=== PATIENT | female | born 1975 | race Asian ===

== ENCOUNTER 2021-05-19 18:25 | Emergency (ER) | payer MEDICAID ==
--- NOTE | 2021-05-19 18:31 | NUR ---
Placed in room 01 . Placed on residential monitor, blood pressure machine and pulse oximeter. To gown for exam. Side rails up. .
[2021-05-19 18:32] VITALS: BP_SYST 130
--- NOTE | 2021-05-19 18:42 | NUR ---
SITTING UP EATING MEAL. PT CALM, ALERT, RESP UNLABORED, SKIN WARM AND DRY. NO DYSPNEA. DENIES CP/SOB. COMMUNICATES IN FULL COPLETE SENTECES
--- NOTE | 2021-05-19 18:54 | NUR ---
DR DAVENPORT AT BEDSIDE TALKING WITH PATIENT
--- NOTE | 2021-05-19 19:22 | NUR ---
GS=[id number], CALM, ALERT TOLERATING PO WELL
--- NOTE | 2021-05-19 19:25 | NUR ---
PATIENT OUT OF BED TO PROVIDE URINE SAMPLE. PATIENT AMBULATING WITH STEADY GAIT AND NO ASSISTANCE
[2021-05-19 19:31] LABS: BASOPHILS # (AUTO) 0.1 K/uL (0.0-0.2); BASOPHILS % (AUTO) 0.7 % (0.0-2.0); EOSINOPHILS # (AUTO) 0.2 K/uL (0.0-0.4); EOSINOPHILS % (AUTO) 1.7 % (0.0-4.0); HEMATOCRIT 49.7 % (36-48); HEMOGLOBIN 16.2 g/dL (12.0-16.0); LYMPHOCYTES # (AUTO) 1.6 K/uL (1.0-5.5); LYMPHOCYTES % (AUTO) 14.1 % (20.5-51.5); MEAN CORPUSCULAR HEMOGLOBIN 30 pg (27-31); MEAN CORPUSCULAR HGB CONC 33 % (32-36); MEAN CORPUSCULAR VOLUME 93 fL (79.0-98.0); MONOCYTES # (AUTO) 0.9 K/uL (0.0-1.0); MONOCYTES % (AUTO) 7.5 % (1.7-9.3); NEUTROPHILS # (AUTO) 8.8 K/uL (1.8-7.7); PLATELET COUNT (AUTO) 211 K/uL (130-430); RED BLOOD CELL COUNT(AUTO) 5.33 MIL/uL (4.2-6.2); RED CELL DISTRIBUTION WIDTH 13.7 % (9.0-15.0); WHITE BLOOD COUNT (AUTO) 11.6 K/uL (4.8-10.8)
[2021-05-19 20:00] LABS: BILIRUBIN,URINE NEGATIVE (NEGATIVE); BLOOD, URINE NEGATIVE (NEGATIVE); CLARITY/URINE CLEAR (CLEAR); GLUCOSE,URINE 1+ (NEGATIVE); KETONES,URINE NEGATIVE (NEGATIVE); LEUKOCYTE ESTERASE ,URINE NEGATIVE (NEGATIVE); NITRITE, URINE NEGATIVE (NEGATIVE); PROTEIN URINE 1+ (NEGATIVE); UROBILINOGEN,URINE 0.2 (0.2-1.0)
[2021-05-19 20:01] LABS: COLOR,URINE STRAW (YELLOW)
[2021-05-19 20:01] LABS: CALCIUM 8.8 mg/dL (8.4-11.0); CREATININE 0.9 mg/dL (0.55-1.30); POTASSIUM 3.8 mmol/L (3.5-5.1)
[2021-05-19 20:12] LABS: ALBUMIN 3.5 g/dL (3.4-4.8); TOTAL BILIRUBIN 0.7 mg/dL (0.0-1.0)
[2021-05-19 20:30] VITALS: BP_SYST 155
--- NOTE | 2021-05-19 20:30 | NUR ---
Patient does not wish to proceed with medical care recommended by Dr. Terry. Patient given information related to possible complications, up to and including , which could occur as a result of leaving hospital at this time. Patient verbalizes understanding of risks involved leaving against medical advice. Patient has signed AMA form.
[2021-05-19 21:01] LABS: BACTERIA,URINE RARE /HPF (None Seen); RBC,URINE 0-3 /HPF (0-3); WBC,URINE NONE SEEN /HPF (0-3)
== END 2021-05-19 20:30 | disposition left against medical advice (07) ==
LOC: SED 18:25
DX: E11.649 Type 2 diabetes mellitus with hypoglycemia without coma (principal); Z88.0 Allergy status to penicillin
CPT/HCPCS: 36415; 80053; 81000; 82962; 84484; 84702; 85025; 93005; 99284

== ENCOUNTER 2023-07-02 22:29 | Inpatient (IN) | payer MEDICAID ==
[~2023-07-02] VITALS: Ht 162.6 cm; Wt 55.8 kg
[~2023-07-02 22:29] MED LIST: ASPI-1393 PO; CARV12.548 PO; EMPA10TA PO; FURO20TA4 PO; INSU100I24 SUBCUT; INSU100V SUBCUT; SPIR25TA6 PO
[2023-07-02 22:47] VITALS: BP_SYST 112; PULSE 94; RESP 18; TEMP 98.2; O2SAT 98
[2023-07-03 00:36] LABS: BASOPHILS # (AUTO) 0.1 K/uL (0.0-0.2); BASOPHILS % (AUTO) 0.6 % (0.0-2.0); EOSINOPHILS # (AUTO) 0.2 K/uL (0.0-0.4); EOSINOPHILS % (AUTO) 1.3 % (0.0-4.0); HEMATOCRIT 42.1 % (36-48); HEMOGLOBIN 13.5 g/dL (12.0-16.0); LYMPHOCYTES # (AUTO) 1.1 K/uL (1.0-5.5); LYMPHOCYTES % (AUTO) 8.7 % (20.5-51.5); MEAN CORPUSCULAR HEMOGLOBIN 28 pg (27-31); MEAN CORPUSCULAR HGB CONC 32 % (32-36); MEAN CORPUSCULAR VOLUME 88 fL (79.0-98.0); MONOCYTES # (AUTO) 0.8 K/uL (0.0-1.0); MONOCYTES % (AUTO) 6.8 % (1.7-9.3); NEUTROPHILS # (AUTO) 10.4 K/uL (1.8-7.7); NEUTROPHILS % (AUTO) 82.6 % (40.0-70.0); PLATELET COUNT (AUTO) 256 K/uL (130-430); RED BLOOD CELL COUNT(AUTO) 4.82 MIL/uL (4.2-6.2); RED CELL DISTRIBUTION WIDTH 13.8 % (9.0-15.0); WHITE BLOOD COUNT (AUTO) 12.6 K/uL (4.8-10.8)
[2023-07-03 00:42] LABS: ERYTHROCYTE SEDIMENTATION RATE 74 MM/HR (0-20)
[2023-07-03] MEDS ORDERED: MORPHINE 4 MG INJ. 4 MG/ML VIAL IVP ONE (00:45)
[2023-07-03] MEDS ORDERED: NACL 0.9% 1,000 ML IV ONE ×2 (00:45→05:45)
[2023-07-03] MEDS ORDERED: VANCOMYCIN HCL 1,000 MG in NS 250 ML IV ONE (00:45)
[2023-07-03] MEDS ORDERED: VANCOMYCIN HCL 1000 MG/VIAL IV ONE (00:58)
[2023-07-03 01:08] LABS: ALBUMIN 2.9 g/dL (3.4-4.8); CALCIUM 8.9 mg/dL (8.4-11.0); CREATININE 1.17 mg/dL (0.55-1.30); TOTAL BILIRUBIN 0.4 mg/dL (0.0-1.0); TOTAL PROTEIN, SERUM 7.3 g/dL (6.4-8.3)
[2023-07-03] MEDS ORDERED: INSULIN NPH/REGULAR 70-30, 100 UNITS/ML, 3 ML VIAL SUBCUT ONE (02:00)
[2023-07-03] MEDS ORDERED: INSULIN REGULAR, HUMAN 100 UNITS/ML, 3 ML VIAL SUBCUT ONE (02:00)
[2023-07-03] MEDS ORDERED: SACU1TAB7 PO (05:53)
[2023-07-03] MEDS ORDERED: ZOLPIDEM TARTRATE 5 MG TABLET PO PRN (07:15)
[2023-07-03] MEDS ORDERED: DEXTROSE 50% JECT 50 ML DISP.SYRIN IVP PRN (07:15)
[2023-07-03] MEDS ORDERED: MUPIROCIN 2% TOPICAL OINTMENT 22 GM NS PRN (07:15)
[2023-07-03] MEDS ORDERED: DOCUSATE SODIUM 100 MG CAPSULE PO PRN (07:15)
[2023-07-03] MEDS ORDERED: LORazepam 2 MG/ML VIAL IVP PRN (07:15)
[2023-07-03] MEDS ORDERED: NALOXONE HCL 0.4 MG/ML AMP (NARCAN) IVP PRN ×2 (07:15)
[2023-07-03] MEDS ORDERED: ACETAMINOPHEN 325 MG TABLET PO PRN ×3 (07:15→08:45)
[2023-07-03] MEDS ORDERED: ONDANSETRON HCL 4 MG/2 ML VIAL IVP PRN (07:15)
[2023-07-03] MEDS ORDERED: MAGNESIUM SULFATE 50 ML IV PRN (07:15)
[2023-07-03 07:30] LABS: INR 1.1 (0.8-1.2); PROTHROMBIN TIME 11.8 SECS (9.5-12.5)
[2023-07-03] MEDS: D5NS 1,000 ML IV SCH ×2 (07:30→16:49)
[2023-07-03 07:36] LABS: HEMOGLOBIN A1C 9.64 % (<5.7)
[2023-07-03] MEDS ORDERED: DEXTROSE 50% JECT 50 ML DISP.SYRIN ONE (08:05)
[2023-07-03] MEDS ORDERED: DEXTROSE 50% JECT 50 ML DISP.SYRIN IVP ONE (08:15)
[2023-07-03 09:45] VITALS: BP_SYST 121; PULSE 77; RESP 18; TEMP 97.5; O2SAT 100
[2023-07-03] MEDS: MORPHINE 2 MG/ML INJ. SYRINGE IVP PRN ×3 (10:19→20:58)
[2023-07-03 11:41] VITALS: O2SAT 100
[2023-07-03] MEDS ORDERED: fentaNYL CITRATE/PF 100 MCG/2 ML AMP ONE (11:53)
[2023-07-03] MEDS ORDERED: MIDAZOLAM HCL 2 MG/2 ML VIAL (VERSED) ONE (11:54)
[2023-07-03] MEDS ORDERED: KETAMINE HCL IN 0.9 % NACL 50 MG/5 ML SYRINGE ONE (11:54)
[2023-07-03] MEDS ORDERED: DOXYCYCLINE HYCLATE 100 MG VIAL IV ONE (12:21)
[2023-07-03] MEDS ORDERED: LIDOCAINE 2%, 20 ML MDV ONE (12:21)
[2023-07-03] MEDS ORDERED: BUPIVACAINE /PF 0.25% 30 ML VIAL INJ ONE (12:21)
[2023-07-03] MEDS ORDERED: MORPHINE 2 MG/ML INJ. SYRINGE ONE (13:45)
[2023-07-03] MEDS ORDERED: MORPHINE 2 MG/ML INJ. SYRINGE IVP ONE (13:45)
[2023-07-03 14:35] VITALS: BP_SYST 121; PULSE 79; RESP 18; TEMP 98.6; O2SAT 99
[2023-07-03] MEDS: INSULIN LISPRO SLIDING SCALE 100 UNITS/ML, 3 ML VIAL (humaLOG) SUBCUT PRN ×3 (14:56→21:15)
[2023-07-03 16:20] VITALS: BP_SYST 118; PULSE 85; RESP 18; TEMP 97; O2SAT 100
[2023-07-03 20:00] VITALS: BP_SYST 114; RESP 20; TEMP 98; O2SAT 97
[2023-07-03] MEDS: CEFTAROLINE FOSAMIL ACETATE 600 MG in NS 250 ML IV SCH (20:54)
[2023-07-03] MEDS ORDERED: VANCOMYCIN HCL 1,000 MG in NS 250 ML IV SCH (21:00)
[2023-07-03 21:40] LABS: BARBITURATE, URINE NEGATIVE (NEG <=200)
[2023-07-03 21:41] LABS: BENZODIAZEPINE, URINE NEGATIVE (NEG <=150); CANNABINOID, URINE NEGATIVE (NEG <=50); COCAINE, URINE NEGATIVE (NEG <=150); METHAMPHETAMINES SCREEN,URINE POSITIVE (NEG <=500); OPIATE, URINE POSITIVE (NEG <=100); PHENCYCLIDINE SCREEN,URINE NEGATIVE (NEG <=25); UR TRICYCLIC ANTIDEPRESSANTS NEGATIVE (NEG <=300); URINE AMPHETAMINE POSITIVE (NEG <=500); URINE METHADONE NEGATIVE (NEG <=200); URINE OXYCODONE SCREEN NEGATIVE (NEG <=100); URINE PROPOXYPHENE SCREEN NEGATIVE (NEG <=300)
[2023-07-04 00:28] LABS: BILIRUBIN,URINE NEGATIVE (NEGATIVE); BLOOD, URINE NEGATIVE (NEGATIVE); CLARITY/URINE CLEAR (CLEAR); COLOR,URINE YELLOW (YELLOW); GLUCOSE,URINE 3+ (NEGATIVE); KETONES,URINE NEGATIVE (NEGATIVE); LEUKOCYTE ESTERASE ,URINE NEGATIVE (NEGATIVE); NITRITE, URINE NEGATIVE (NEGATIVE); PROTEIN URINE NEGATIVE (NEGATIVE); UROBILINOGEN,URINE 0.2 (0.2-1.0)
[2023-07-04 01:01] VITALS: BP_SYST 110; PULSE 81; RESP 20; TEMP 98.8; O2SAT 99
[2023-07-04 05:11] LABS: BASOPHILS # (AUTO) 0.1 K/uL (0.0-0.2); BASOPHILS % (AUTO) 0.6 % (0.0-2.0); EOSINOPHILS # (AUTO) 0.3 K/uL (0.0-0.4); EOSINOPHILS % (AUTO) 3.1 % (0.0-4.0); HEMATOCRIT 42.6 % (36-48); HEMOGLOBIN 13.8 g/dL (12.0-16.0); LYMPHOCYTES # (AUTO) 1.4 K/uL (1.0-5.5); LYMPHOCYTES % (AUTO) 14.6 % (20.5-51.5); MEAN CORPUSCULAR HEMOGLOBIN 28 pg (27-31); MEAN CORPUSCULAR HGB CONC 32 % (32-36); MEAN CORPUSCULAR VOLUME 88 fL (79.0-98.0); MONOCYTES # (AUTO) 0.6 K/uL (0.0-1.0); MONOCYTES % (AUTO) 6.7 % (1.7-9.3); NEUTROPHILS # (AUTO) 7.3 K/uL (1.8-7.7); PLATELET COUNT (AUTO) 237 K/uL (130-430); RED BLOOD CELL COUNT(AUTO) 4.86 MIL/uL (4.2-6.2); RED CELL DISTRIBUTION WIDTH 13.5 % (9.0-15.0); WHITE BLOOD COUNT (AUTO) 9.7 K/uL (4.8-10.8)
[2023-07-04 05:49] LABS: CALCIUM 8.6 mg/dL (8.4-11.0); CREATININE 0.81 mg/dL (0.55-1.30); POTASSIUM 3.3 mmol/L (3.5-5.1)
[2023-07-04] MEDS: POTASSIUM CHLORIDE 20 MEQ TAB.PRT.SR PO PRN ×2 (06:12→09:03)
[2023-07-04] MEDS: INSULIN LISPRO SLIDING SCALE 100 UNITS/ML, 3 ML VIAL (humaLOG) SUBCUT PRN ×4 (06:16→22:05)
[2023-07-04] MEDS: D5NS 1,000 ML IV SCH ×2 (06:22→17:21)
[2023-07-04] MEDS: CEFTAROLINE FOSAMIL ACETATE 600 MG in NS 250 ML IV SCH ×2 (08:52→21:35)
[2023-07-04 11:20] VITALS: BP_SYST 126; PULSE 86; RESP 15; TEMP 96.2; O2SAT 99
[2023-07-04] MEDS: MORPHINE 2 MG/ML INJ. SYRINGE IVP PRN ×3 (14:58→23:34)
[2023-07-04 15:24] VITALS: BP_SYST 117; PULSE 94; RESP 16; TEMP 98.9; O2SAT 96
[2023-07-04 19:35] VITALS: BP_SYST 123; RESP 18; TEMP 97.4; O2SAT 100
[2023-07-05 01:26] VITALS: BP_SYST 124; PULSE 91; RESP 18; TEMP 99.2; O2SAT 98
[2023-07-05 06:03] LABS: BASOPHILS # (AUTO) 0.1 K/uL (0.0-0.2); BASOPHILS % (AUTO) 0.6 % (0.0-2.0); EOSINOPHILS # (AUTO) 0.3 K/uL (0.0-0.4); EOSINOPHILS % (AUTO) 3.3 % (0.0-4.0); HEMATOCRIT 42.6 % (36-48); HEMOGLOBIN 13.7 g/dL (12.0-16.0); LYMPHOCYTES # (AUTO) 1.3 K/uL (1.0-5.5); LYMPHOCYTES % (AUTO) 14.8 % (20.5-51.5); MEAN CORPUSCULAR HEMOGLOBIN 28 pg (27-31); MEAN CORPUSCULAR HGB CONC 32 % (32-36); MEAN CORPUSCULAR VOLUME 87 fL (79.0-98.0); MONOCYTES # (AUTO) 0.7 K/uL (0.0-1.0); MONOCYTES % (AUTO) 7.3 % (1.7-9.3); NEUTROPHILS # (AUTO) 6.8 K/uL (1.8-7.7); PLATELET COUNT (AUTO) 254 K/uL (130-430); RED CELL DISTRIBUTION WIDTH 13.4 % (9.0-15.0); WHITE BLOOD COUNT (AUTO) 9.1 K/uL (4.8-10.8)
[2023-07-05] MEDS: INSULIN LISPRO SLIDING SCALE 100 UNITS/ML, 3 ML VIAL (humaLOG) SUBCUT PRN ×3 (06:07→18:22)
[2023-07-05 06:25] LABS: CALCIUM 8.9 mg/dL (8.4-11.0); CREATININE 0.8 mg/dL (0.55-1.30); POTASSIUM 3.7 mmol/L (3.5-5.1)
[2023-07-05 07:48] VITALS: BP_SYST 128; PULSE 81; RESP 18; TEMP 98.2; O2SAT 96
[2023-07-05] MEDS: CEFTAROLINE FOSAMIL ACETATE 600 MG in NS 250 ML IV SCH (08:40)
[2023-07-05] MEDS: D5NS 1,000 ML IV SCH (08:40)
[2023-07-05] MEDS ORDERED: GENTAMICIN SULFATE 0.3% Non-Formulary OPHT. 5 ML DROPS OP SCH (09:00)
[2023-07-05 09:42] LABS: INR 1.2 (0.8-1.2)
[2023-07-05] MEDS: TOBRAMYCIN SULFATE 0.3% EYE DROPS 5 ML OP SCH ×4 (10:31→21:40)
[2023-07-05] MEDS: MORPHINE 2 MG/ML INJ. SYRINGE IVP PRN ×2 (13:54→21:41)
[2023-07-05 16:00] VITALS: BP_SYST 128; PULSE 81; RESP 16; TEMP 98.2; O2SAT 96
[2023-07-05 20:00] VITALS: BP_SYST 117; PULSE 88; RESP 20; TEMP 97.8; O2SAT 99
[2023-07-05] MEDS: DOXYCYCLINE HYCLATE 100 MG CAPSULE PO SCH (21:40)
[2023-07-06 01:02] VITALS: BP_SYST 119; PULSE 81; RESP 18; TEMP 98.6; O2SAT 98
[2023-07-06] MEDS: D5NS 1,000 ML IV SCH (02:57)
[2023-07-06 05:56] LABS: BASOPHILS # (AUTO) 0.1 K/uL (0.0-0.2); BASOPHILS % (AUTO) 0.7 % (0.0-2.0); EOSINOPHILS # (AUTO) 0.3 K/uL (0.0-0.4); EOSINOPHILS % (AUTO) 3.4 % (0.0-4.0); HEMATOCRIT 41.8 % (36-48); HEMOGLOBIN 13.6 g/dL (12.0-16.0); LYMPHOCYTES # (AUTO) 1.3 K/uL (1.0-5.5); LYMPHOCYTES % (AUTO) 14.9 % (20.5-51.5); MEAN CORPUSCULAR HEMOGLOBIN 28 pg (27-31); MEAN CORPUSCULAR HGB CONC 33 % (32-36); MEAN CORPUSCULAR VOLUME 86 fL (79.0-98.0); MONOCYTES # (AUTO) 0.6 K/uL (0.0-1.0); NEUTROPHILS # (AUTO) 6.3 K/uL (1.8-7.7); PLATELET COUNT (AUTO) 261 K/uL (130-430); RED BLOOD CELL COUNT(AUTO) 4.84 MIL/uL (4.2-6.2); RED CELL DISTRIBUTION WIDTH 13.4 % (9.0-15.0); WHITE BLOOD COUNT (AUTO) 8.5 K/uL (4.8-10.8)
[2023-07-06] MEDS: TOBRAMYCIN SULFATE 0.3% EYE DROPS 5 ML OP SCH ×2 (06:35→12:03)
[2023-07-06 06:36] LABS: CALCIUM 8.8 mg/dL (8.4-11.0); CREATININE 0.83 mg/dL (0.55-1.30); POTASSIUM 3.4 mmol/L (3.5-5.1)
[2023-07-06] MEDS: INSULIN LISPRO SLIDING SCALE 100 UNITS/ML, 3 ML VIAL (humaLOG) SUBCUT PRN ×2 (06:37→12:10)
[2023-07-06 08:00] VITALS: BP_SYST 114; PULSE 84; RESP 18; TEMP 98.1; O2SAT 98
[2023-07-06] MEDS ORDERED: DOXY100C5 PO (08:46)
[2023-07-06] MEDS ORDERED: LEVO-62 PO (08:46)
[2023-07-06] MEDS ORDERED: L.RH1CAP PO (08:48)
[2023-07-06] MEDS ORDERED: TRAM50TA2 PO (08:50)
[2023-07-06] MEDS: DOXYCYCLINE HYCLATE 100 MG CAPSULE PO SCH (09:49)
[2023-07-06] MEDS: MORPHINE 2 MG/ML INJ. SYRINGE IVP PRN (09:50)
[2023-07-06 13:57] VITALS: BP_SYST 108; PULSE 98; RESP 16; TEMP 98.9
== END 2023-07-06 15:45 | disposition home health service (06) | DRG 313 ==
LOC: SED 22:29 → SMU 07-03 05:44
PROVIDERS: ADMIT General Practice; ATTEND General Practice
PROC: 0QPH04Z Removal of Internal Fixation Device from Left Tibia, Open Approach (ICD-10-PCS; 2023-07-03)
PROC: 0QBH0ZZ Excision of Left Tibia, Open Approach (ICD-10-PCS; principal; 2023-07-03 12:21)
DX: T84.7XXA Infection and inflammatory reaction due to other internal orthopedic prosthetic devices, implants and grafts, initial encounter (principal); E11.00 Type 2 diabetes mellitus with hyperosmolarity without nonketotic hyperglycemic-hyperosmolar coma (NKHHC); A41.9 Sepsis, unspecified organism; E44.0 Moderate protein-calorie malnutrition; E87.1 Hypo-osmolality and hyponatremia; L03.116 Cellulitis of left lower limb; I48.91 Unspecified atrial fibrillation; I50.9 Heart failure, unspecified; I11.0 Hypertensive heart disease with heart failure; I25.10 Atherosclerotic heart disease of native coronary artery without angina pectoris; I25.5 Ischemic cardiomyopathy; E11.65 Type 2 diabetes mellitus with hyperglycemia; Y83.8 Other surgical procedures as the cause of abnormal reaction of the patient, or of later complication, without mention of misadventure at the time of the procedure; Z79.4 Long term (current) use of insulin; Z79.82 Long term (current) use of aspirin; Z79.84 Long term (current) use of oral hypoglycemic drugs; Z79.899 Other long term (current) drug therapy; Z83.3 Family history of diabetes mellitus; Z95.1 Presence of aortocoronary bypass graft; Z95.810 Presence of automatic (implantable) cardiac defibrillator; Z98.891 History of uterine scar from previous surgery; Z88.0 Allergy status to penicillin; Z91.013 Allergy to seafood; Y92.89 Other specified places as the place of occurrence of the external cause; Z68.21 Body mass index [BMI] 21.0-21.9, adult
CPT/HCPCS: 36415; 71045; 73590-TC; 80048; 80053; 80307; 81001; 81003; 82962; 83037; 83735; 83880; 85025; 85610-TC; 85651-TC; 85730-TC; 87040; 87070-TC; 87075-TC; 87081; 88300; 93005; 96365; 96372; 96375; 97110-GP; 97112-GP; 97116-GP; 97530-GP; 99285; J0696; J0712; J1815; J2001; J2270; J3010; J3370; J3465; J3490; J7050; J7060